=== PATIENT | female | born 1945 | race Caucasian/White ===

== ENCOUNTER 2016-09-12 10:37 | Inpatient (IN) | payer MEDICARE, OTHER ==
[~2016-09-12] VITALS: Ht 170.2 cm; Wt 94.0 kg
--- NOTE | 2016-09-18 15:35 | NUR ---
PATIENT NOTE RONY WAS D/C TO HER HOME PER HER REQUEST THIS A.M. SHE ALREADY MADE HER APPOINTMENT WITH BALANCE AND MOBILITY FOR OUTPT. PHYSICAL THERAPY TODAY. SHE HAS HER OWN WALKER. RONY WAS AWARE OF THE THERAPY GOAL DATE OF 09/20 BUT FELT SHE WAS READY TO GO HOME AFTER SHE SEEN HER SURGEON ON 09/17. RONY CAME TO SKILLED CARE FOLLOWING HER LEFT TOTAL KNEE SURGERY THAT SHE HAD DONE BY DR. KINSEY AT THE [facility]. SHE REMAINED MEDICARE SKILLED WITH PHYSICAL/OCCUPATIONAL THERAPY THE SKILLED SERVICES. SHE WAS ALERT AND ORIENTED TIMES 3. RONY WAS UNHAPPY WITH HER STAY HERE AND DID VOICE HER CONCERNS TO SLIM YOUNG RN. HER STAY HERE WAS 09/12 - 09/18 FOR A TOTAL OF 6 SKILLED DAYS USED.
[2016-09-19] MEDS ORDERED: TYLENOL DPS325 MG PO (09:49)
[2016-09-19] MEDS ORDERED: NUCYNTA50 MG PO (09:50)
[2016-09-19] MEDS ORDERED: XARELTO10 MG PO (09:50)
[2016-09-19] MEDS ORDERED: CARAFATE DPS1 GM PO (09:50)
[2016-09-19] MEDS ORDERED: COLACE-DPS100 MG PO (09:50)
[2016-09-19] MEDS ORDERED: VITAMIN D50000 UNIT PO (09:51)
[2016-09-19] MEDS ORDERED: PROTONIX20 MG PO (09:51)
[2016-09-19] MEDS ORDERED: MIRALAX PACKET17 GM PO (09:51)
== END 2016-09-18 09:45 | disposition home or self-care (01) | DRG 561 ==
LOC: SNU 10:37
PROVIDERS: ADMIT Internal Medicine
DX: Z47.1 Aftercare following joint replacement surgery (principal); K21.9 Gastro-esophageal reflux disease without esophagitis; Z96.652 Presence of left artificial knee joint; K59.00 Constipation, unspecified; L40.9 Psoriasis, unspecified; M85.80 Other specified disorders of bone density and structure, unspecified site; M19.049 Primary osteoarthritis, unspecified hand; Z87.891 Personal history of nicotine dependence; Z98.1 Arthrodesis status; Z86.718 Personal history of other venous thrombosis and embolism